=== PATIENT | female | born 1995 | race Caucasian/White ===

== ENCOUNTER 2017-05-20 10:48 | Emergency (ER) | payer OTHER | END 2017-05-20 12:29 | disposition home or self-care (01) | LOC: M ED 10:48 | DX: O99.511 Diseases of the respiratory system complicating pregnancy, first trimester (principal); J06.9 Acute upper respiratory infection, unspecified; O99.411 Diseases of the circulatory system complicating pregnancy, first trimester; R01.1 Cardiac murmur, unspecified; Z3A.01 Less than 8 weeks gestation of pregnancy | CPT/HCPCS: 87880 ==

== ENCOUNTER 2017-08-14 14:16 | Emergency (ER) | payer OTHER ==
[2017-08-14 15:01] LABS: HEMOGLOBIN 12.5 g/dl (12.0-15.5); MEAN CORPUSCULAR HEMOGLOBIN 28.9 pg (27.0-33.0); MEAN CORPUSCULAR HGB CONC 34.7 g/dl (32.0-36.5); MEAN CORPUSCULAR VOLUME 83.3 fl (80.0-96.0); PLATELET COUNT, AUTOMATED 343 10^3/uL (150-450); RED BLOOD COUNT 4.32 10^6/uL (4.00-5.40); RED CELL DISTRIBUTION WIDTH 13.2 % (11.5-14.5); WHITE BLOOD COUNT 10.3 10^3/uL (4.0-10.0)
[2017-08-14 15:05] LABS: KETONE, URINE AUTO RFX NEGATIVE (NEGATIVE); LEUKOCYTE ESTERASE UR AUTO RFX NEGATIVE (NEGATIVE); NITRITE, URINE AUTO RFX NEGATIVE (NEGATIVE); RBC, URINE AUTO RFX 0 /HPF (0-3); SPECIFIC GRAVITY UR AUTO RFX 1.003 (1.002-1.035); SQUAM EPITHELIAL CELL UR AURFX 0 /HPF (0-6); WBC, URINE AUTO RFX 1 /HPF (0-3)
[2017-08-14 18:27] LABS: CHLAMYDIA DNA AMPLIFICATION NEGATIVE (NEGATIVE); GC DNA AMPLIFICATION NEGATIVE (NEGATIVE)
== END 2017-08-14 16:14 | disposition home or self-care (01) ==
LOC: M ED 14:16
DX: O26.852 Spotting complicating pregnancy, second trimester (principal); Z3A.18 18 weeks gestation of pregnancy
CPT/HCPCS: 85027

== ENCOUNTER 2018-11-13 10:25 | Emergency (ER) | payer OTHER ==
[~2018-11-13] VITALS: Ht 160 cm; Wt 58.4 kg
[~2018-11-13 10:25] MED LIST: PRENTAB77
[2018-11-13] MEDS ORDERED: CRYS28TA (10:30)
[2018-11-13 11:12] LABS: BASO % 0.2 % (0.0-1.0); EOS # 0.1 10^3/uL (0.0-0.5); EOS % 1.7 % (0.0-3.0); HEMATOCRIT 40.6 % (36.0-47.0); HEMOGLOBIN 13.1 g/dl (12.0-15.5); LYMPH # 1.9 10^3/uL (1.5-5.0); LYMPH % 35.3 % (24.0-44.0); MEAN CORPUSCULAR HEMOGLOBIN 26.9 pg (27.0-33.0); MEAN CORPUSCULAR HGB CONC 32.3 g/dl (32.0-36.5); MEAN CORPUSCULAR VOLUME 83.4 fl (80.0-96.0); MONO # 0.4 10^3/uL (0.0-0.8); MONO % 6.8 % (0.0-5.0); NEUTROPHILS % 55.6 % (36.0-66.0); PLATELET COUNT, AUTOMATED 418 10^3/uL (150-450); RED BLOOD COUNT 4.87 10^6/uL (4.00-5.40); WHITE BLOOD COUNT 5.3 10^3/uL (4.0-10.0)
--- NOTE | 2018-11-13 11:26 | REP ---
KUB: Single view. History: Left upper quadrant pain. No comparison study. Findings: The bowel gas pattern is normal with air and stool in a nondistended colon. Psoas margins and flank stripes are intact. No mass, organomegaly, or pathologic calcification is seen. No significant bony abnormality. Impression: Negative KUB. Electronically Signed by Justin Rodarte MD 11/13/2018 11:17 A
[2018-11-13 11:38] LABS: ALBUMIN 3.8 GM/DL (3.2-5.2); ALT/SGPT 21 U/L (12-78); BILIRUBIN,DIRECT < 0.1 MG/DL (0.0-0.2); BILIRUBIN,TOTAL 0.4 MG/DL (0.2-1.0); BLOOD UREA NITROGEN 8 MG/DL (7-18); CALCIUM LEVEL 8.8 MG/DL (8.5-10.1); CARBON DIOXIDE LEVEL 24 MEQ/L (21-32); CHLORIDE LEVEL 106 MEQ/L (98-107); CREATININE FOR GFR 0.64 MG/DL (0.55-1.30); GLOMERULAR FILTRATION RATE > 60.0 (>60); GLUCOSE, FASTING 88 MG/DL (70-100); LIPASE 117 U/L (73-393); SODIUM LEVEL 139 MEQ/L (136-145)
[2018-11-13] MEDS ORDERED: MIRA3350 PO (11:53)
[2018-11-13 11:59] VITALS: BP 117/70
[2018-11-13] MEDS ORDERED: MAGNESIUM CITRATE 300 ML BTL PO ONE (12:00)
== END 2018-11-13 12:04 | disposition home or self-care (01) ==
LOC: M ED 10:25
DX: K59.00 Constipation, unspecified (principal); R10.12 Left upper quadrant pain; Z79.3 Long term (current) use of hormonal contraceptives

== ENCOUNTER 2019-06-14 12:02 | Emergency (ER) | payer OTHER ==
[~2019-06-14] VITALS: Ht 160 cm; Wt 65.8 kg
[~2019-06-14 12:02] MED LIST changes: +CRYS28TA; +MIRA3350 PO
[2019-06-14] MEDS ORDERED: PREN1CHW6 PO (12:16)
[2019-06-14] MEDS ORDERED: IRON27TA2 PO (12:16)
[2019-06-14] MEDS ORDERED: VITA100T59 PO (12:16)
[2019-06-14 12:34] LABS: HEMATOCRIT 40.5 % (36.0-47.0); HEMOGLOBIN 13.1 g/dl (12.0-15.5); MEAN CORPUSCULAR HEMOGLOBIN 27.1 pg (27.0-33.0); MEAN CORPUSCULAR HGB CONC 32.3 g/dl (32.0-36.5); MEAN CORPUSCULAR VOLUME 83.7 fl (80.0-96.0); PLATELET COUNT, AUTOMATED 381 10^3/uL (150-450); RED BLOOD COUNT 4.84 10^6/uL (4.00-5.40); WHITE BLOOD COUNT 8.4 10^3/uL (4.0-10.0)
[2019-06-14 15:08] VITALS: BP 129/71
--- NOTE | 2019-06-15 07:11 | REP ---
PELVIC ULTRASOUND: Real-time sonographic evaluation of the pelvis is performed. The uterus measures 9.3 x 5.1 x 6.6 cm. Endometrial thickness is 14 mm. No gestational sac is seen in the uterus. Ovaries are normal in size and echotexture right ovary measuring 3.3 x 2.0 x 2.5 cm and left ovary 3.8 x 2.3 x 3.2 cm. Cystic structure in the right ovary in diameter may represent a corpus luteum. No adnexal mass is seen. No free fluid is seen. Differential diagnosis would include very early intrauterine , missed or ectopic . Clinical correlation recommended as well as correlation with serial quantitative beta hCG values. Electronically Signed by Shai Cottrell MD 06/15/2019 04:48 P
== END 2019-06-14 15:09 | disposition home or self-care (01) ==
LOC: M ED 12:02
DX: O20.0 Threatened abortion (principal); Z3A.01 Less than 8 weeks gestation of pregnancy; Z79.899 Other long term (current) drug therapy

== ENCOUNTER 2019-06-16 13:01 | Emergency (ER) | payer OTHER ==
[~2019-06-16] VITALS: Ht 160 cm; Wt 65.7 kg
[~2019-06-16 13:01] MED LIST changes: +IRON27TA2 PO; +PREN1CHW6 PO; +VITA100T59 PO
[2019-06-16 14:37] VITALS: BP 133/78
== END 2019-06-16 14:39 | disposition home or self-care (01) ==
LOC: M ED 13:01
DX: O03.9 Complete or unspecified spontaneous abortion without complication (principal); Z79.899 Other long term (current) drug therapy

== ENCOUNTER 2020-06-05 22:47 | Outpatient (CLI) | payer OTHER ==
[~2020-06-05] VITALS: Ht 157.5 cm; Wt 78.1 kg
[2020-06-05 23:04] VITALS: BP 111/55
--- NOTE | 2020-06-06 00:32 | IPNPDOC ---
Obstetrical Progress Note Date of Service Jun 06, 2020 Subjective 24yo reg [id number] @35+2 presenting to triage with c/o regular contractions, denies bleeding, LOF, states reassuring fm. Currently being treated for BV and yeast. Objective Vital Signs Date Time Temp Pulse Resp B/P (MAP) Pulse Ox O2 Delivery O2 Flow Rate FiO2 06/05/20 23:04 98.3 117 18 111/55 (73) Assessment Heart Rate (FHR): 130 Variability: Moderate Accelerations: Positive Decelerations: None Tocometer Contractions: Yes Frequency: every 2-5 min. Duration: greater than 60 seconds Strength: palpated as mild Sterile Vaginal Examination Dilation: 2cm Effacement (%): 50% Station: -3 Cervical Consistency: Medium Cervical Position: Posterior Postion/Presentation: Cephalic presentation Assessment and Plan Age: 24 : 2 Term: 1 Pre-term: 0 Abortions: 0 Livin EGA at Admission: 35 (+2) Status: Reassuring Group B Streptococcus: Unknown Additional Comments JEEVAN/WP consistent with yeast. GBS collected and sent. Pt desires to attempt to orally hydrate, if unable to hydrate adequately, will accept an IV. Continue EFM x2 and re evaluate in 2 hours. AVNI LEON CNM Jun 06, 2020 00:32
== END 2020-06-27 15:05 | disposition home or self-care (01) ==
LOC: M LDO 22:47
PROVIDERS: ATTEND Registered Nurse
DX: O47.03 False labor before 37 completed weeks of gestation, third trimester (principal); Z3A.35 35 weeks gestation of pregnancy; O23.593 Infection of other part of genital tract in pregnancy, third trimester; B37.9 Candidiasis, unspecified
CPT/HCPCS: 59025; G0378; G0463

== ENCOUNTER 2020-06-09 20:22 | Outpatient (CLI) | payer OTHER ==
--- NOTE | 2020-06-09 22:02 | IPNPDOC ---
Obstetrical Progress Note Date of Service Jun 09, 2020 Subjective Pt presenting with c/o change in movement. Denies bleeding, lof, states occasional contractions. Assessment Heart Rate (FHR): 130 Variability: Moderate Accelerations: Positive Decelerations: None Heart Rate Tracing: Category I Tocometer Contractions: Yes Frequency: other (rare) Duration: less than 60 seconds Strength: palpated as mild, resting tone palp/soft Sterile Vaginal Examination Dilation: 2cm Effacement (%): 50% Station: -3 Cervical Consistency: Medium Cervical Position: Posterior Postion/Presentation: Cephalic presentation Assessment and Plan Age: 24 : 2 Term: 1 Pre-term: 0 Abortions: 0 Livin EGA at Admission: 35 (+4) Status: Reassuring Group B Streptococcus: Unknown Additional Comments TAUS for SIUP in cephalic presentation with movement noted. CHERELLE 19.8cm Pt discharged to home with PTL precautions, reviewed kick counts, reasons to return for care and contact information. Pt should keep scheduled appt in the clinic. AVNI LEON CNM Jun 09, 2020 22:02
== END 2020-06-09 21:15 | disposition home or self-care (01) ==
LOC: M LDO 20:22
PROVIDERS: ATTEND Registered Nurse
DX: O36.8190 Decreased fetal movements, unspecified trimester, not applicable or unspecified (principal); Z3A.00 Weeks of gestation of pregnancy not specified
CPT/HCPCS: 59025; 76815; G0378; G0463

== ENCOUNTER → 2020-06-11 | Outpatient (CLI) | payer OTHER ==
--- NOTE | 2020-06-11 17:13 | REP ---
INDICATION: PREG 34+ WKS GROWTH COMPARISON: None. TECHNIQUE: Transabdominal obstetrical ultrasound with color Doppler evaluation. FINDINGS: Examination demonstrates a single live intrauterine in breech presentation. motion is identified by technologist. Placenta is noted posterior and grade 1 without evidence for placenta previa or abruption. Amniotic fluid volume is normal. Gestational age by LMP 36 weeks 0 days with JUNG 07/09/2020. Gestational age by current measurements 37 weeks 1 day with JUNG 07/01/2020. FHR equals 149 beats per minute. BPD: 8.9 cm at 36 weeks 1 day HC: 32.3 cm at 36 weeks 4 days AC: 35.0 cm at 38 weeks 6 days FL: 7.4 cm at 37 weeks 5 days HL: 6.3 cm at 36 weeks 2 days HC/AC: 0.92 Estimated weight 3368 grams (97th percentile based on age by LMP; 85th percentile based on age by current measurements ). CHERELLE: 23.3 cm (7.7-24.9). Limited anatomical assessment demonstrates normal cranium, facial features, lungs, four-chamber heart, diaphragm, stomach/abdominal wall, left kidney and bladder. IMPRESSION: 1. Single live intrauterine in breech presentation demonstrating greater than expected interval growth. Correlation is recommended. No gross abnormalities are identified although evaluation is limited due to advanced age. 2. Amniotic fluid index is upper limits of normal. <Electronically signed by Mohinder Baez > 06/11/20 [id number]
== END ==
LOC: M RAD 15:53
PROVIDERS: ATTEND Registered Nurse Maternal Newborn
DX: O36.61X0 Maternal care for excessive fetal growth, first trimester, not applicable or unspecified (principal)

== ENCOUNTER 2020-06-23 07:33 | Outpatient (CLI) | payer OTHER ==
[~2020-06-23] VITALS: Ht 157.5 cm; Wt 78.5 kg
[2020-06-23 07:46] VITALS: BP 123/77
[2020-06-23 09:13] VITALS: BP 121/77
--- NOTE | 2020-06-23 10:15 | IPNPDOC ---
Obstetrical Progress Note Date of Service June 23, 2020 Subjective 24 yo at 37w5d with JUNG of 09 JUL 2020 presents to L&D with complaints of contractions since last night that have worsened since 0600 this morning. She denies leaking of fluid, vaginal bleeding, and reports positive movement. Objective Bedside US confirmed vertex position. After 2 hours, cervical exam remains unchanged Assessment Heart Rate (FHR): 145 Variability: Moderate Accelerations: Present Decelerations: None Tocometer Contractions: Yes Frequency: other (every 5-7 minutes) Sterile Vaginal Examination Dilation: 1cm Effacement (%): 40% Station: -3 Cervical Consistency: Firm Cervical Position: Posterior Postion/Presentation: Cephalic presentation Assessment and Plan Age: 24 : 3 Term: 1 Pre-term: 0 Abortions: 1 Livin EGA at Admission: 37 (+5) Weeks & Days 37w5d Status: Reassuring Group B Streptococcus: Negative Anticipate: Other (Discharge to home, certified not in labor) Additional Comments Recommended to increase hydration with 3-4 liters of water per day Recommended to keep all scheduled appointments with [facility] CLIENT SUPPORT REPRESENTATIVE [facility] and labor precautions discussed Recommended to return to L&D if symptoms worsen or persist BHARTI MEJIA CNM June 23, 2020 08:34
== END 2020-06-23 10:15 | disposition home or self-care (01) ==
LOC: M LDO 07:33
PROVIDERS: ATTEND Registered Nurse Maternal Newborn
DX: O47.1 False labor at or after 37 completed weeks of gestation (principal); Z3A.37 37 weeks gestation of pregnancy
CPT/HCPCS: 59025; 76815; G0378; G0463

== ENCOUNTER → 2020-06-27 | Outpatient (CLI) | payer OTHER ==
[~2020-06-27] VITALS: Ht 157.5 cm; Wt 80.1 kg
[2020-06-27 14:36] VITALS: BP 113/70
--- NOTE | 2020-06-27 15:08 | IPNPDOC ---
Text Note Date of Service The patient was seen on 06/27/20. NOTE 24 yo at 38+2 weeks gestation presented to L&D with the complaint of contractions. She denies any bleeding or leakage of fluid. She endorses movement. Chaperoned by RN Vitals - VSS, afebrile, normotensive, non tachycardic General - AAOX3, sitting up in bed, NAD Abdomen - Gravid uterus. No fundal tenderness Cervix - 1/thick/high posterior. Unchanged from exam from Sunday. FHR tracing - Cat I with moderate variability, +accels, no decels. Sporadic ctx on toco. Not in active labor. status reassuring. Discharged home with return precautions. Has follow up in the office scheduled tomorrow. All questions answered. 20 minutes of patient care DO CINDI Bojorquez CHRISTOPHER J. DO June 27, 2020 15:08
== END ==
LOC: M LDO 14:26
PROVIDERS: ATTEND Obstetrics & Gynecology
DX: O47.1 False labor at or after 37 completed weeks of gestation (principal); Z3A.38 38 weeks gestation of pregnancy
CPT/HCPCS: 59025; G0378; G0463

== ENCOUNTER 2020-07-05 09:36 | Inpatient (IN) | payer OTHER ==
[~2020-07-05] VITALS: Ht 157.5 cm; Wt 80.2 kg
[2020-07-05] VITALS (15 sets, daily range): BP systolic 119–146; BP diastolic 69–86
[2020-07-05] MEDS ORDERED: LACTATED RINGER'S 1000 ML IV STA (12:57)
[2020-07-05] MEDS ORDERED: OXYTOCIN DRIP 30 UNITS in IV 1 EA IV PRN (13:00)
--- NOTE | 2020-07-05 13:21 | HPEPDOC ---
Obstetrical History & Physical General Date of Admission History of Present Illness Presenting with c/o increased frequency of contractions and pressure Chief Complaint: Contractions, term Information Provided By: Patient Age: 24 : 3 Term: 1 Pre-term: 0 Abortions: 1 Livin Care Care: Good Care Dating Final EDC: July 09, 2020 Final EDC for Daily Update: July 09, 2020 Final EDC by: LMP LMP: Sep 25, 2019 Antepartum Course Diagnos(e)s gestational anemia, varicella NI, borderline polyhydramnios, breech at 38 wks- resolved at 39wks Height (inches): 62 Pre- weight (lbs.): 140 Admission Weight (lbs.): 176 Change in Weight (lbs.): 36 Past Medical History Past Obstetrical History : Past Obstetrical History: Multigravida Date of Delivery: Dec 21, 2017 Gestation: 37 Type of Delivery: Spontaneous Vaginal Del. 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 (6wk SAB June 2019) Past Medical History Surgical History: Denies/None Family History Significant Family History: Cancer (mgm, pgf), Diabetes (mgf) Social History Marital Status: Family situation: Spouse/partner home Psychosocial History: No pertinent psych hx * Smoker: non-smoker Alcohol: Denies Drugs: denies Abuse Violence Screening Have you been hit/kicked/slapp: No Have you been sexually assault: No Imunizations Influenza Status: current Allergies Coded Allergies: No Known Allergies (Unverified , 05/20/17) Medications Scheduled Ferrous Gluconate (Iron) 236 Mg Tablet, 1 TAB PO DAILY Vit37/Iron/Folic Acid (Prenata Chewable Tablet) 1 Each Tab.chew, 1 TAB PO DAILY Physical Examination Physical Examination GENERAL: Alert and oriented times three. BREAST: . ABDOMEN: Gravid and non-tender to touch. FETUS: Is vertex (VTX) by sterile vaginal examination (SVE), fetus is vertex (VTX) by Emiliano and BREEZY. HEART RATE: Regular rate and rhythm. LUNGS: Clear to auscultation (CTA). EXTREMITIES: No edema. No clonus. Deep tendon reflexes (DTRs) + 2. Vital Signs/I&O Vital Signs Date Time Temp Pulse Resp B/P (MAP) Pulse Ox O2 Delivery O2 Flow Rate FiO2 07/05/20 12:19 98.6 86 18 119/69 (86) Pertinent Laboratoy Data Blood Type: A+ RBC Antibody Screen: Negative HIV: Negative Hepatitis B: Negative Rapid Plasma Reagin: Nonreactive Rubella: Immune Varicella: Nonreactive Chlamydia/Gonorrhea: Negative Group B Streptococcus: Negative Glucose Tolerance Test: 136 (89/176/146/98) Anatomy Ultrasound Ultrasound Date: Jun 11, 2020 Placenta Location: Posterior Normal Anatomy: Yes Placenta Previa: No Estimated Weight (grams): 3368 Vaginal Examination Dilation: 5 cm Effacement: 80% Station: -2 Cervical Consistency: Soft Cervical Position: Posterior Presentation: Cephalic presentation Position: Vertex (occiput) Assessment Variability: Moderate Accelerations: Positive Decelerations: None Tocometer Contractions: Yes Frequency: every 2-5 min. Duration: greater than 60 seconds Strength: palpated as moderate, resting tone palp/soft Multi-drug resistant Organism: No history of MDRO Assessment/Plan Assessment Talya is a 24-year-old (G)3 para (P)1-0-1-1 at 39+3 weeks by 9-week ultrasound. Presents to Labor and Delivery (L&D) for labor check. Made change from 4/80/-3 to 5/80/-2 over two hours while in triage.. Plan Admit and orient. Property Assessment Monitor and consent. Diet: clear. Group B Streptococcus (GBS) negative. Labs and intravenous (IV) per unit protocol. Counseled on Pitocin and augmentation of labor. Lactated Ringers (LR): Bolus 1000 mL, then at 125 mL/hr. Anticipate normal spontaneous delivery (. C-S as appropriate. AVNI LEON CNM July 05, 2020 13:20
[2020-07-05] MEDS ORDERED: LR 1,000 ML IV SCH ×2 (14:00→16:45)
[2020-07-05 14:06] LABS: HEMOGLOBIN 11.2 g/dl (12.0-15.5); MEAN CORPUSCULAR HEMOGLOBIN 24.7 pg (27.0-33.0); MEAN CORPUSCULAR VOLUME 77.1 fl (80.0-96.0); PLATELET COUNT, AUTOMATED 341 10^3/uL (150-450); RED BLOOD COUNT 4.54 10^6/uL (4.00-5.40); WHITE BLOOD COUNT 13.6 10^3/uL (4.0-10.0)
[2020-07-05] MEDS ORDERED: OXYTOCIN DRIP 30 UNITS in IV 1 EA IV SCH (16:45)
--- NOTE | 2020-07-05 16:49 | IPNPDOC ---
Text Note Date of Service The patient was seen on 07/05/20. NOTE Went to room for assessment. Talya reports continued contraction pain, but nothing too severe. Cervix: /-2. FHR tracing - Cat I with moderate variability, +accels, no decels. Contractions spaced. I counseled Talya and recommended pitocin augmentation of labor for slowed progress. I also offered her discharge home if she preferred. Talya desired to proceed with pitocin augmentation. Drip ordered. She may have an epidural when/if desired. All questions answered. Remi VS,Rogelio, I+O VS, Rogelio, I+O Laboratory Tests 07/05/20 13:54 Vital Signs Date Time Temp Pulse Resp B/P (MAP) Pulse Ox O2 Delivery O2 Flow Rate FiO2 07/05/20 16:11 86 18 137/80 (99) 07/05/20 14:32 98.7 KYLER PUENTE DO July 05, 2020 16:49
[2020-07-06] VITALS (33 sets, daily range): BP systolic 103–160; BP diastolic 55–94
[2020-07-06] MEDS ORDERED: FENTANYL 2MCG/ML ROPIVACAINE 0.2% IN 0.9% NACL 100ML IVBAG As Ordered ONE (02:30)
[2020-07-06] MEDS ORDERED: diphenhydrAMINE 50MG/ML VIAL (J1200) IV PRN (03:25)
[2020-07-06] MEDS ORDERED: EPIDURAL/PCA KEYS XX PRN (03:25)
[2020-07-06] MEDS ORDERED: REFRIGERATOR IV KEYS XX PRN (03:25)
[2020-07-06] MEDS ORDERED: NALOXONE INJ 0.4MG/1ML VIAL (J2310 PER 1MG) IV PRN (03:25)
[2020-07-06] MEDS ORDERED: ePHEDrine SULFATE 25 MG/5 ML(5MG/ML) SYRINGE IV PRN (03:25)
[2020-07-06] MEDS ORDERED: FENTANYL/ROPIVACAINE/NACL BAG 100 ML EPIDURAL SCH (03:25)
[2020-07-06] MEDS ORDERED: EPIDURAL COMMENT XX SCH (03:25)
[2020-07-06] MEDS ORDERED: LACTATED RINGER'S 1000 ML IV PRN (03:25)
[2020-07-06] MEDS ORDERED: ONDANSETRON 4MG/2ML VIAL IV PRN (03:25)
--- NOTE | 2020-07-06 05:53 | IPNPDOC ---
Text Note Date of Service The patient was seen on 07/06/20. NOTE Presented to room for assessment. Talya just recently on her epidural and is more comfortable, though she feels some vaginal pressure. Cervix: 9/C/0. AROM performed productive of a large amount of clear fluid. FHR tracing - Cat I with moderate variability. Variable decel after AROM. Overall reassuring. Talya is progressing well. Continue with pitocin. Remi VS,Rogelio, I+O VS, Rogelio, I+O Laboratory Tests 07/05/20 13:54 Vital Signs Date Time Temp Pulse Resp B/P (MAP) Pulse Ox O2 Delivery O2 Flow Rate FiO2 07/06/20 05:01 98.1 81 124/66 (85) 07/05/20 17:12 18 I&O- Last 24 Hours up to 6 AM 07/06/20 06:00 Intake Total 2400 ml Output Total 2350 ml Balance 50 ml KYLER PUENTE DO July 06, 2020 05:53
[2020-07-06] MEDS ORDERED: ACETAMINOPHEN TAB 650MG DOSE (2X325MG) PO PRN (08:15)
[2020-07-06] MEDS ORDERED: IBUPROFEN 600MG TAB PO PRN (08:15)
[2020-07-06] MEDS ORDERED: DIBUCAINE 1% OINTMENT 30GM TOP PRN (08:15)
[2020-07-06] MEDS ORDERED: MEASLES,MUMPS,RUBELLA VACCINE INJ (MMR-II) (90707) SC SCH (08:15)
[2020-07-06] MEDS ORDERED: PROMETHAZINE 25 MG TAB PO PRN (08:15)
[2020-07-06] MEDS ORDERED: RHOGAM 300 MCG (1500 IU) INJ (J2790) IM SCH (08:15)
[2020-07-06] MEDS ORDERED: ACETAMINOPHEN 500 MG TAB PO PRN (08:15)
[2020-07-06] MEDS ORDERED: METHYLERGONOVINE MALEATE 0.2 MG TAB PO PRN (08:15)
--- NOTE | 2020-07-06 08:30 | DNPDOC ---
[facility] Delivery Note Delivery Note Date of the procedure: 06 JUL 2020 Preoperative diagnosis: 1. 24 y/o at 39w4d 2. Active labor 3. GBS negative 4. A positive 5. Varicella NI Postoperative diagnosis: 1. 24 y/o G3 now P2012 at 39w4d 2. Active labor 3. GBS negative 4. A positive 5. Varicella NI 6. Nuchal cord x1 Procedure: Delivering Provider: LAURIE Kiran CNM, MELITA Intern Architect Back-up: Juarez Jorge MD Anesthesia: Epidural EBL: 200 ml Specimens: None Findings: Live male weighing 8 lb 3 oz, 3700 grams with Apgars of 7 and 8 at 1 and 5 minutes respectively. Complications: None Details of the procedure: The patient presented complaining of contractions and was found to be in active labor. Patient was 5 cm dilated and was then admitted to L&D. Labor progressed without Pitocin and membranes were ruptured artificially for clear fluid.. The patient progressed to fully dilated and entered the second stage of labor, at which point she began to push over an intact perineum. The head was then delivered. The nuchal cord x1 was noted and was reduced. The rest of the was delivered. The was placed on maternal abdomen and the cord was doubly clamped and cut. Cord blood was not collected and a 3 vessel cord was noted. M anual exploration of the uterus was not performed. Uterine tone was firm. Perineum was inspected and no laceration found. Cervical exam was normal. Rectal exam was not noted. Sponge, instrument, and needle counts were correct. The patient tolerated the procedure well and is stable in recovery. Note was written and electronically signed by: LAURIE Kiran CNM, [facility] BHARTI MEJIA CNM July 06, 2020 08:23
[2020-07-06 08:49] LABS: HEMATOCRIT 32.9 % (36.0-47.0); HEMOGLOBIN 10.5 g/dl (12.0-15.5); MEAN CORPUSCULAR HEMOGLOBIN 24.6 pg (27.0-33.0); MEAN CORPUSCULAR HGB CONC 31.9 g/dl (32.0-36.5); MEAN CORPUSCULAR VOLUME 77.2 fl (80.0-96.0); PLATELET COUNT, AUTOMATED 304 10^3/uL (150-450); RED BLOOD COUNT 4.26 10^6/uL (4.00-5.40); WHITE BLOOD COUNT 13.8 10^3/uL (4.0-10.0)
[2020-07-06 09:22] LABS: ALT/SGPT 13 U/L (12-78); BILIRUBIN,TOTAL 0.4 MG/DL (0.2-1.0); CREATININE FOR GFR 0.52 MG/DL (0.55-1.30); GLOMERULAR FILTRATION RATE > 60.0 (>60); LDH LACTATE DEHYDROGENASE 192 U/L (84-246)
[2020-07-06] MEDS: PRENATAL VITAMINS CHEWABLE TABLET PO SCH (10:02)
[2020-07-06] MEDS: DOCUSATE SODIUM 100MG CAPSULE PO SCH ×2 (10:02→19:38)
[2020-07-06] MEDS: IBUPROFEN 800 MG TAB PO PRN ×2 (10:02→19:38)
--- NOTE | 2020-07-06 17:08 | IPN ---
PROGRESS NOTE DATE: 07/06/2020 This patient requested circumcision of her male . After discussing risks and benefits of circumcision, the medical and nonmedical indications, the penile block, and aftercare, expressed understanding of penile kimberly, aftercare, and bleeding, signed the consent form. All questions were answered. A 20-minute discussion. We await clearance by the commercial energy auditor. %%CCLIST%%
[2020-07-07 05:52] VITALS: BP 102/55
[2020-07-07 07:00] LABS: HEMATOCRIT 29.4 % (36.0-47.0); HEMOGLOBIN 9.1 g/dl (12.0-15.5); MEAN CORPUSCULAR HEMOGLOBIN 24.2 pg (27.0-33.0); MEAN CORPUSCULAR VOLUME 78.2 fl (80.0-96.0); PLATELET COUNT, AUTOMATED 237 10^3/uL (150-450); RED BLOOD COUNT 3.76 10^6/uL (4.00-5.40); WHITE BLOOD COUNT 12.5 10^3/uL (4.0-10.0)
[2020-07-07] MEDS ORDERED: IBUP-1022 PO (07:17)
[2020-07-07] MEDS ORDERED: DOK1CAP7 PO (07:17)
[2020-07-07] MEDS ORDERED: DIBU28OI2 TOP (07:17)
--- NOTE | 2020-07-07 07:58 | DSES ---
DISCHARGE SUMMARY DATE OF ADMISSION: 07/05/2020 DATE OF DISCHARGE: 07/07/2020 HISTORY OF PRESENT ILLNESS/HOSPITAL COURSE: A 24-year-old 3 now para 2, admitted at 39 and 4 weeks gestation in active labor. Spontaneous vaginal delivery of a male infant 8 pounds 3 ounces (3700 grams). Apgars of 7 and 9 at one and five minutes respectively. We discussed phlebitis, cystitis, mastitis, endometritis, and cellulitis, diet, exercise, pain management, perineal and breast care. DISCHARGE PHYSICAL EXAMINATION: On discharge day her blood pressure 102/55, respirations 16, pulse 53, and temperature 97.3. The rest of the examination unremarkable. Normocephalic, atraumatic. Neck with full range of motion. Pupils equal and reactive to light. Distal pulses symmetric. No evidence of DVT, PE, or superficial phlebitis. Chest was clear at bilateral bases with no wheezes or rhonchi. No CVA tenderness. Abdomen was soft with four quadrant bowel sounds noted. Uterus two below. Lochia moderate. Perineum is intact. There are no rashes, lesions, or pruritus. No arthralgia or myalgias. No complaint of joint pain. No complaint of cough, wheeze, shortness of breath, or dyspnea on exertion. No nausea, vomiting, diarrhea, or constipation. No urgency or frequency. LABORATORY DATA: Her admitting hemoglobin 11.2, hematocrit 35.0, and platelets 341,000. Discharge hemoglobin 9.1, hematocrit 29.4, and platelets 237,000. In summary, I have a term gestation delivering a live male infant. Plans are for discharge today. Six week checkup at [facility]. Medications dispensed to be picked up at [facility]. All questions were answered, 20 minute discussion, and the patient was discharged improved.
[2020-07-07] MEDS: PRENATAL VITAMINS CHEWABLE TABLET PO SCH (08:33)
[2020-07-07] MEDS: DOCUSATE SODIUM 100MG CAPSULE PO SCH (08:33)
== END 2020-07-07 13:03 | disposition home or self-care (01) | DRG 807 ==
LOC: M LDO 09:36 → M LDI 13:03 → M OBS 07-06 10:22
PROVIDERS: ADMIT Registered Nurse; ATTEND Registered Nurse
PROC: 10E0XZZ Delivery of Products of Conception, External Approach (ICD-10-PCS; principal; 2020-07-06)
PROC: 10907ZC Drainage of Amniotic Fluid, Therapeutic from Products of Conception, Via Natural or Artificial Opening (ICD-10-PCS; 2020-07-06)
DX: O69.81X0 Labor and delivery complicated by cord around neck, without compression, not applicable or unspecified (principal); Z37.0 Single live birth; O99.02 Anemia complicating childbirth; O40.3XX0 Polyhydramnios, third trimester, not applicable or unspecified; Z3A.39 39 weeks gestation of pregnancy

== ENCOUNTER 2021-08-29 23:13 | Inpatient (IN) | payer OTHER ==
[~2021-08-29] VITALS: Ht 157.5 cm; Wt 72.7 kg
[~2021-08-29 23:13] MED LIST changes: +DIBU28OI2 TOP; +DOK1CAP4 PO; +IBUP-1022 PO
[2021-08-29] MEDS ORDERED: METHYLERGONOVINE MALEATE 0.2 MG/ML VIAL (J2210) IM PRN (23:25)
[2021-08-29] MEDS ORDERED: LR 1,000 ML IV SCH ×2 (23:25→23:30)
[2021-08-29] MEDS ORDERED: OXYTOCIN DRIP 30 UNITS in IV 1 EA IV PRN ×4 (23:25)
[2021-08-29] MEDS ORDERED: OXYTOCIN INJ 10 UNITS/ML VIAL (J2590) IV PRN (23:25)
[2021-08-29] MEDS ORDERED: TRANEXAMIC ACID INJection 1,000 MG in NS 100 ML IV PRN (23:25)
[2021-08-29] MEDS ORDERED: LACTATED RINGER'S 1000 ML IV ONE (23:25)
[2021-08-29] MEDS ORDERED: METHYLERGONOVINE MALEATE 0.2 MG TAB PO PRN (23:30)
[2021-08-29] MEDS ORDERED: OXYTOCIN INJ 10 UNITS/ML VIAL (J2590) IV ONE (23:30)
[2021-08-29] MEDS ORDERED: RHOGAM 300 MCG (1500 IU) INJ (J2790) IM SCH (23:30)
[2021-08-29] MEDS ORDERED: DIBUCAINE 1% OINTMENT 30GM TOP PRN (23:30)
[2021-08-29] MEDS ORDERED: ACETAMINOPHEN 500 MG TAB PO PRN (23:30)
[2021-08-29] MEDS ORDERED: ACETAMINOPHEN TAB 650MG DOSE (2X325MG) PO PRN (23:30)
[2021-08-29] MEDS ORDERED: ANUSOL HC CREAM 30GM TOP PRN (23:30)
[2021-08-29] MEDS ORDERED: OXYTOCIN DRIP 30 UNITS in IV 1 EA IV SCH (23:30)
[2021-08-29] MEDS ORDERED: DOCUSATE SODIUM 100MG CAPSULE PO PRN (23:30)
[2021-08-29] MEDS ORDERED: OXYTOCIN DRIP 30 UNITS in IV 1 EA IV ONE (23:30)
[2021-08-29] MEDS ORDERED: TRANEXAMIC ACID INJection 1,000 MG in NS 100 ML IV ONE (23:30)
[2021-08-29] MEDS ORDERED: MOM 30ML SUSPENSION UDC PO PRN (23:30)
[2021-08-29] MEDS ORDERED: OXYTOCIN INJ 10 UNITS/ML VIAL (J2590) As Ordered ONE (23:32)
[2021-08-29] MEDS ORDERED: OXYTOCIN 30 UNITS IN 0.9% NaCl 500ML IV BAG (J2590) As Ordered ONE (23:32)
[2021-08-29 23:33] LABS: HEMATOCRIT 35.3 % (36.0-47.0); HEMOGLOBIN 11.4 g/dl (12.0-15.5); MEAN CORPUSCULAR HEMOGLOBIN 24.4 pg (27.0-33.0); MEAN CORPUSCULAR HGB CONC 32.3 g/dl (32.0-36.5); MEAN CORPUSCULAR VOLUME 75.4 fl (80.0-96.0); PLATELET COUNT, AUTOMATED 359 10^3/uL (150-450); RED BLOOD COUNT 4.68 10^6/uL (4.00-5.40); WHITE BLOOD COUNT 12.9 10^3/uL (4.0-10.0)
[2021-08-29 23:48] LABS: CORD GAS ABE A -2.5; CORD GAS ABE V -2.5; CORD GAS HCO3 A 24.2 MEQ/L; CORD GAS HCO3 V 20.4 MEQ/L; CORD GAS O2 SAT A 28.2 %; CORD GAS O2 SAT V 68.7 %; CORD GAS PCO2 A 48.6 mmHg; CORD GAS PCO2 V 30.9 mmHg; CORD GAS PH A 7.315 UNITS; CORD GAS PH V 7.438 UNITS; CORD GAS PO2 A 14.1 mmHg; CORD GAS PO2 V 25.7 mmHg; CORD GAS SBC A 20.6 MEQ/L; CORD GAS SBC V 21.7 MEQ/L; CORD GAS TCO2 A 25.7 MEQ/L; CORD GAS TCO2 V 21.4 MEQ/L
[2021-08-30] VITALS (9 sets, daily range): BP systolic 109–151; BP diastolic 65–87
[2021-08-30] MEDS: IBUPROFEN 600MG TAB PO PRN ×2 (02:10→12:06)
[2021-08-30] MEDS: PRENATAL VITAMINS CHEWABLE TABLET PO SCH (07:57)
[2021-08-31 05:30] VITALS: BP 122/63
[2021-08-31] MEDS: PRENATAL VITAMINS CHEWABLE TABLET PO SCH (07:48)
[2021-08-31] MEDS: IBUPROFEN 600MG TAB PO PRN (07:48)
[2021-08-31] MEDS ORDERED: MEASLES,MUMPS,RUBELLA VACCINE INJ (MMR-II) (90707) SC.IMMUN ONE (09:00)
== END 2021-08-31 13:00 | disposition home or self-care (01) | DRG 807 ==
LOC: M LDO 23:13 → M LDI 23:16 → M OBS 08-30 01:40
PROVIDERS: ADMIT Obstetrics & Gynecology; ATTEND Obstetrics & Gynecology
PROC: 10E0XZZ Delivery of Products of Conception, External Approach (ICD-10-PCS; principal; 2021-08-29)
PROC: 10907ZC Drainage of Amniotic Fluid, Therapeutic from Products of Conception, Via Natural or Artificial Opening (ICD-10-PCS; 2021-08-29)
DX: O62.3 Precipitate labor (principal); Z37.0 Single live birth; Z3A.37 37 weeks gestation of pregnancy